=== PATIENT | male | born 1990 | race Caucasian/White ===

== ENCOUNTER → 2023-09-26 10:31 | Outpatient (REF) | payer OTHER, SELFPAY | LOC: OHS 10:31 | PROVIDERS: ATTENDING PHYSICIAN Nurse Practitioner Family | DX: Z23 Encounter for immunization (principal) | CPT/HCPCS: 36415; 86480 ==

== ENCOUNTER → 2024-03-12 08:54 | Outpatient (REF) | payer BC, SELFPAY | LOC: WDC 08:54 | PROVIDERS: ATTENDING PHYSICIAN Hospitalist | DX: M79.621 Pain in right upper arm (principal); N64.4 Mastodynia; N63.31 Unspecified lump in axillary tail of the right breast | CPT/HCPCS: 76642; 77062; 77066 ==

== ENCOUNTER 2024-05-07 06:17 | Day surgery (SDC) | payer BC, SELFPAY | END 2024-05-07 08:44 | disposition home or self-care (01) | LOC: GI 06:17 | PROVIDERS: ATTENDING PHYSICIAN Internal Medicine Gastroenterology; FAMILY PHYSICIAN Hospitalist | DX: Z12.11 Encounter for screening for malignant neoplasm of colon (principal); Z86.0100 Personal history of colon polyps, unspecified; K64.8 Other hemorrhoids | CPT/HCPCS: G0105 ==

== ENCOUNTER → 2024-09-16 20:03 | Outpatient (REF) | payer BC, SELFPAY | LOC: MRI 3T 20:03 | PROVIDERS: ATTENDING PHYSICIAN Orthopaedic Surgery | DX: M25.532 Pain in left wrist (principal) | CPT/HCPCS: 73221 ==